=== PATIENT | male | born 1930 | race Caucasian/White ===

== ENCOUNTER → 2018-04-06 | Day surgery (SDC) ==
[~2018-04-06] MED LIST: AK-DILATE 10% OPTH SOL OP PRN; BRIMONIDINE TARTRATE 0.2% OPTH SOL OP PRN; BSS WITH EPINEPHRINE OP ONE; DEX-MOXI-KETOR OPTH INJ 1/0.5/0.4 MG/ML IO ONE; LIDOCAINE 1% 20 ML MDV ID STA; LIDOCAINE 1%/PHENYLEPHRINE 1.5% BSS (SURGERY) INTRAOCULA ONE; NIRAVAM ODT (SURGERY) PO PRN; SUBLIMAZE ONE; VERSED ONE; ZOFRAN 4 MG/2 ML IVP ONE
[2018-04-06] MEDS: TETRACAINE 0.5% OPTH SOL OP PRN ×2 (09:03→09:47)
[2018-04-06] MEDS: BETADINE OPTH PREP OP PRN ×2 (09:03→09:47)
[2018-04-06] MEDS: CYCLOGYL 2% OPTH OP PRN ×3 (09:04→09:14)
[2018-04-06 09:19] VITALS: BP 177/72; TEMP 97.8
== END ==
LOC: SURG 08:08
PROVIDERS: ATTEND Ophthalmology
DX: H25.812 Combined forms of age-related cataract, left eye (principal)

== ENCOUNTER 2018-04-20 08:05 | Day surgery (SDC) ==
[2018-04-20] MEDS: CYCLOGYL 2% OPTH OP PRN ×3 (09:15→09:25)
[2018-04-20] MEDS: TETRACAINE 0.5% UNIT-DOSE OP PRN ×2 (09:15→10:02)
[2018-04-20] MEDS: BETADINE OPTH PREP OP PRN ×2 (09:15→10:02)
[2018-04-20] MEDS ORDERED: DEX-MOXI-KETOR OPTH INJ 1/0.5/0.4 MG/ML IO ONE (09:25)
[2018-04-20] MEDS ORDERED: BSS WITH EPINEPHRINE OP ONE (09:25)
[2018-04-20] MEDS ORDERED: BRIMONIDINE TARTRATE 0.2% OPTH SOL OP PRN (09:25)
[2018-04-20] MEDS ORDERED: LIDOCAINE 1%/PHENYLEPHRINE 1.5% BSS (SURGERY) INTRAOCULA ONE (09:25)
[2018-04-20] MEDS ORDERED: ZOFRAN 4 MG/2 ML IVP ONE (09:25)
[2018-04-20] MEDS ORDERED: LIDOCAINE 1% 20 ML MDV ID STA (09:25)
[2018-04-20] MEDS ORDERED: VERSED ONE (10:00)
[2018-04-20] MEDS ORDERED: SUBLIMAZE ONE (10:00)
[2018-04-20 14:21] VITALS: TEMP 98.4
[2018-04-22 15:13] VITALS: BP 124/62
== END 2018-04-20 10:55 | disposition home or self-care (01) ==
LOC: SURG 08:05
PROVIDERS: ATTEND Ophthalmology
DX: H25.811 Combined forms of age-related cataract, right eye (principal)